=== PATIENT | male | born 1985 | race Two or more races ===

== ENCOUNTER 2019-02-08 04:17 | Emergency (ER) | payer OTHER ==
[~2019-02-08] VITALS: Ht 165.1 cm; Wt 87.1 kg
[2019-02-08] MEDS ORDERED: LAMICTAL25 MG (04:29)
[2019-02-08] MEDS ORDERED: KETO10TA2 PO (06:15)
== END 2019-02-08 06:24 | disposition home or self-care (01) ==
LOC: ER 04:17
DX: R13.19 Other dysphagia (principal)

== ENCOUNTER → 2019-02-14 | Emergency (ER) | payer OTHER ==
[~2019-02-14] VITALS: Ht 165.1 cm; Wt 87.1 kg
[~2019-02-14] MED LIST: DICLOFENAC SODI75 MG PO; KETO10TA2 PO; LAMICTAL25 MG; MEDROLPACK PO
== END | disposition left against medical advice (07) ==
LOC: ER 14:18
DX: Z53.20 Procedure and treatment not carried out because of patient's decision for unspecified reasons (principal)

== ENCOUNTER 2019-03-03 13:57 | Emergency (ER) | payer OTHER ==
[~2019-03-03] VITALS: Ht 165.1 cm; Wt 86.2 kg
[~2019-03-03 13:57] MED LIST changes: -DICLOFENAC SODI75 MG PO; -MEDROLPACK PO
[2019-03-03] MEDS ORDERED: DICLOFENAC SODI75 MG PO (15:20)
[2019-03-03] MEDS ORDERED: MEDROLPACK PO (15:20)
== END 2019-03-03 15:44 | disposition home or self-care (01) ==
LOC: ER 13:57
DX: M54.5 Low back pain (principal)

== ENCOUNTER 2019-08-04 15:50 | Emergency (ER) | payer OTHER ==
[~2019-08-04] VITALS: Ht 165.1 cm; Wt 85.3 kg
[~2019-08-04 15:50] MED LIST changes: +DICLOFENAC SODI75 MG PO; +MEDROLPACK PO
[2019-08-04] MEDS ORDERED: LAMICTAL200 M1 (15:57)
== END 2019-08-04 17:22 | disposition home or self-care (01) ==
LOC: ER 15:50
DX: L27.0 Generalized skin eruption due to drugs and medicaments taken internally (principal); T42.6X5A Adverse effect of other antiepileptic and sedative-hypnotic drugs, initial encounter; Y92.89 Other specified places as the place of occurrence of the external cause

== ENCOUNTER → 2019-10-21 | Emergency (ER) | payer OTHER ==
[~2019-10-21] VITALS: Ht 165.1 cm; Wt 86.2 kg
[~2019-10-21] MED LIST changes: +BUSPIRONE HCL7.5 MG; +LAMICTAL200 M1
== END | disposition left against medical advice (07) ==
LOC: ER 00:57
DX: Z53.20 Procedure and treatment not carried out because of patient's decision for unspecified reasons (principal)

== ENCOUNTER 2020-01-16 01:22 | Emergency (ER) | payer OTHER ==
[~2020-01-16] VITALS: Ht 165.1 cm; Wt 83.5 kg
== END 2020-01-16 05:39 | disposition home or self-care (01) ==
LOC: ER 01:22
DX: B34.9 Viral infection, unspecified (principal); Z03.818 Encounter for observation for suspected exposure to other biological agents ruled out; R06.02 Shortness of breath; R05 Cough

== ENCOUNTER → 2020-01-21 | Emergency (ER) | payer OTHER | END | disposition left against medical advice (07) | LOC: ER 17:16 | DX: Z53.20 Procedure and treatment not carried out because of patient's decision for unspecified reasons (principal) ==

== ENCOUNTER 2021-06-01 08:00 | Outpatient (CLI) | payer OTHER | END 2021-06-01 08:30 | disposition home or self-care (01) | LOC: PPH VACUNA 08:00 | PROVIDERS: ATTEND Emergency Medicine Pediatric Emergency Medicine | DX: Z23 Encounter for immunization (principal) ==

== ENCOUNTER 2022-04-02 06:00 | Outpatient (CLI) | payer OTHER | END 2022-04-02 23:00 | disposition home or self-care (01) | LOC: LAB 06:00 | PROVIDERS: ATTEND Obstetrics & Gynecology | DX: Z20.828 Contact with and (suspected) exposure to other viral communicable diseases (principal) ==

== ENCOUNTER 2022-06-18 21:44 | Emergency (ER) | payer OTHER ==
[~2022-06-18] VITALS: Ht 165.1 cm; Wt 99.8 kg
[2022-06-18] MEDS ORDERED: LITHIUM CARBON150 MG (22:57)
== END 2022-06-18 23:47 | disposition home or self-care (01) ==
LOC: ER 21:44
DX: U07.1 COVID-19 (principal); R51.9 Headache, unspecified; R53.81 Other malaise